=== PATIENT | female | born 1995 | race Two or more races ===

== ENCOUNTER 2021-04-17 13:35 | Emergency (ER) | payer OTHER ==
[~2021-04-17] VITALS: Ht 154.9 cm; Wt 102.5 kg
[2021-04-17 14:26] VITALS: BP 123/76
[2021-04-17] MEDS ORDERED: KETOROLAC TROMETH 60MG/2ML VIAL IM ONE (15:15)
== END 2021-04-17 15:52 | disposition home or self-care (01) ==
LOC: ER 13:35
DX: M54.41 Lumbago with sciatica, right side (principal); E66.01 Morbid (severe) obesity due to excess calories; Z68.41 Body mass index [BMI] 40.0-44.9, adult
CPT/HCPCS: 81002; 81025; 96372; 99283; J1885

== ENCOUNTER 2024-09-25 08:59 | Emergency (ER) | payer OTHER ==
[~2024-09-25] VITALS: Ht 154.9 cm; Wt 102.3 kg
--- NOTE | 2024-09-25 09:27 | ED.PDOC ---
GI ASSESSMENT HPI Comments 29-year-old with no pertinent MHx presents with a chief complaint of acute vertigo Onset started when she was at work Reports sudden symptoms of dizziness with sudden movements Denies any pain Denies numbness tingling weakness to the lower extremity Denies any medications Last [id number]/3/2024 Chief Complaint: Nausea/Vomiting Time Seen by MD: 09:16 Reviewed Notes: Nurses Notes, Medications, Allergies Allergies: Coded Allergies: No Known Drug Allergy (Verified Allergy, Unknown, 04/17/21) Home Meds Active Scripts Meclizine Hcl (Meclizine Hcl) 12.5 Mg Tab, 1 TAB PO TID for 30 Days, #90 TAB 0 Refills Prov:ELIUD AGUIAR [place] STEIN 09/25/24 Information Source: Patient Past Medical History PAST MEDICAL HISTORY: Denies Surgical History: Denies all surgeries CITY DIRECTOR History: Denies all CITY DIRECTOR Hx Family History Family History: Reviewed,noncontributory to illness Social History Smoker: Non-Smoker Lives In: Home All Other Systems: Reviewed and Negative (Per HPI) Physical Exam General Appearance: No Apparent Distress, Normal HEENT: Normal ENT Inspection, Pharynx Normal, TMs Normal Neck: Full Range of Motion, Non-Tender, Normal, Normal Inspection Respiratory: Chest Non-Tender, Lungs Clear, No Accessory Muscle Use, No Respiratory Distress, Normal Breath Sounds Cardiovascular: No Edema, No JVD, No Murmur, No Gallop, Normal Peripheral Pulses, Regular Rate/Rhythm Breast Exam: Deferred Gastrointestinal: No Organomegaly, Non Tender, No Pulsatile Mass, Normal Bowel Sounds, Soft Genitalia: Deferred Pelvic: Deferred Rectal: Deferred Extremities: No calf tenderness, Normal capillary refill, Normal inspection, Normal range of motion, Non-tender, No pedal edema Musculoskeletal : Apperance: Normal Neurologic: Alert, operations scheduler II-XII nml as Tested, No Motor Deficits, Normal Affect, Normal Mood, No Sensory Deficits Cerebellar Function: Normal Reflexes: Normal Skin: Dry, Normal Color, Warm Lymphatic: No Adenopathy Was a procedure done? Was a procedure done?: No GI differential Dx Differential Diagnosis: Other X-Ray, Labs, Meds, VS Vital Signs Date Time Temp Pulse Resp B/P (MAP) Pulse Ox O2 Delivery O2 Flow Rate FiO2 09/25/24 09:31 65 16 98 Room Air 09/25/24 09:31 98.2 65 16 147/64 (91) 98 98.2 09/25/24 09:22 98.2 65 16 147/64 (91) 98 Lab Test 09/25/24 09:47 09/25/24 09:20 Range/Units White Blood Count 7.6 4.4-10.8 10^3/uL Red Blood Count 4.53 4.0-5.20 10^6/uL Hemoglobin 13.2 12.2-16.2 g/dL Hematocrit 42.0 36.0-46.0 % Mean Corpuscular Volume 92.6 80.0-100.0 fL Mean Corpuscular Hemoglobin 29.1 28.0-32.0 pg Mean Corpuscular Hemoglobin Concent 31.4 L 32.0-36.0 g/dL Red Cell Distribution Width 13.4 11.8-14.3 % Platelet Count 220 140-450 10^3/uL Mean Platelet Volume 7.4 6.9-10.8 fL Neutrophils (%) (Auto) 66.1 37.0-80.0 % Lymphocytes (%) (Auto) 28.1 10.0-50.0 % Monocytes (%) (Auto) 4.0 0.0-12.0 % Eosinophils (%) (Auto) 1.2 0.0-7.0 % Basophils (%) (Auto) 0.6 0.0-2.0 % Neutrophils # (Auto) 5.0 1.6-8.6 10 ^3/uL Lymphocytes # (Auto) 2.1 0.4-5.4 10 ^3/uL Monocytes # (Auto) 0.3 0-1.3 10 ^3/uL Eosinophils # (Auto) 0.1 0-0.8 10 ^3/uL Basophils # (Auto) 0 0-0.2 10 ^3/uL Nucleated Red Blood Cells 0.0 % Sodium Level 136 136-145 mmol/L Potassium Level 4.8 3.5-5.1 mmol/L Chloride Level 107 98-107 mmol/L Carbon Dioxide Level 24 20-31 mmol/L Anion Gap 5 5-15 Blood Urea Nitrogen 6 L 9-23 mg/dL Creatinine 0.53 L 0.550-1.02 mg/dL Glomerular Filtration Rate Calc 130 >90 mL/min BUN/Creatinine Ratio 11.3 10.0-20.0 Serum Glucose 86 74-106 mg/dL Calcium Level 9.9 8.7-10.4 mg/dL Urine Color Light-yellow Yellow Urine Clarity Clear Clear Urine pH 6.5 5.0-9.0 Urine Specific [place] 1.008 1.001-1.035 Urine Protein Negative Negative Urine Ketones Negative Negative Urine Blood Negative Negative /uL Urine Nitrite Negative Negative Urine Bilirubin Negative Negative Urine Urobilinogen Normal Negative mg/dL Urine Leukocyte Esterase Negative Negative /uL Urine RBC <1 0 - 4 /hpf Urine WBC <1 0 - 5 /hpf Urine Squamous Epithelial Cells Few <5 /hpf Urine Bacteria None seen None Seen /hpf Urine Glucose Normal Normal mg/dL Urine Test Negative Negative Current Medications Medications (Trade) Dose Ordered Sig/Kelsy Route Start Time Stop Time Status Last Admin Meclizine HCl (Antivert Tablet) 25 mg ONCE ONCE PO 09/25/24 09:30 09/25/24 09:36 DC 09/25/24 09:39 X-Ray, Labs, Meds, VS Comment History and physical consistent with vertigo and peripheral etiology- specifically BPPV Neuro examination normal. Vital signs stable Meclizine as needed Patient instructed in performance of Chantal maneuver Recommended this video: https://edhub.ama-assn.org/jn-learning/video-player/06428040 Discussed that it is important to tailor exercises to the affected canal. The above video is for right-sided BPPV Recommending patient to sleep in a reclining position for the next night or so and to be aware of head positioning for the next week Return precautions given Symptoms not improving Any symptoms of facial drooping or limb weakness or any sign of stroke On reevaluation, patient had symptomatic improvement. Patient is stable for discharge at this time. External notes reviewed. Test results and diagnostic imaging interpreted. All diagnostic findings, discharge care, education and instructions provided Follow-up with PCP in 2 to 3 days Patient verbalized understanding and agreed to treatment plan Vital signs stable, afebrile, no acute distress noted Patient ambulatory with strong steady gait Advised to return precautions for any new or worsening symptoms, return to ER immediately for re-evaluation Patient is aware that the purpose of this visit was for an acute medical emergency requiring emergent stabilization. Chronic conditions, including malignancies have not been ruled out. Patient is instructed to follow up with PCP as directed and discharge instructions for continued care and workup. If unable to arrange follow-up, patient is to return to the emergency department f or reassessment. Patient (parent or legal guardian if applicable) was given verbal and written discharge instructions and acknowledges understanding. Time of 1ST Reevaluation: 10:30 Reevaluation 1ST: Improved Patient Education/Counseling: Diagnosis, Treatment Family Education/Counseling: Diagnosis, Treatment Departure 1 Departure Time of Disposition: 10:48 Impression: Primary Impression: Vertigo Disposition: 01 HOME / SELF CARE / HOMELESS Condition: Stable e-Prescriptions Meclizine Hcl (Meclizine Hcl) 12.5 Mg Tab 1 TAB PO TID for 30 Days, #90 TAB 0 Refills Prov: ELIUD AGUIAR NP 09/25/24 Discharged With: Self Critical Care Note Critical Care Time?: No Stability Stability form required: No Heart Score Heart Score: Heart Score Response (Comments) Value History N/A 0 EKG N/A 0 Age N/A 0 Risk Factors N/A 0 Troponin N/A 0 Total 0 ELIUD AGUIAR NP Sep 25, 2024 09:27
[2024-09-25 09:31] VITALS: BP 147/64; PULSE 65; RESP 16; TEMP 98.2; O2SAT 98
[2024-09-25 09:36] LABS: Urine Bacteria None Seen /hpf (None Seen)
[2024-09-25] MEDS: MECLIZINE HCL 25 MG TAB PO ONE (09:39)
[2024-09-25 10:06] LABS: Urine Blood Negative /uL (Negative); Urine Clarity Clear (Clear); Urine Protein, UAD Negative (Negative); Urine Specific Gravity 1.008 (1.001-1.035); Urine Urobilinogen Normal (Negative); Urine WBC <1 /hpf (0 - 5); Urine pH 6.5 (5.0-9.0)
[2024-09-25 10:08] LABS: Urine Color Light-Yellow (Yellow)
[2024-09-25 10:16] LABS: Chloride 107 mmol/L (98-107); Sodium 136 mmol/L (136-145)
[2024-09-25 10:17] LABS: Anion Gap 5 (5-15); Calcium 9.9 mg/dL (8.7-10.4); Carbon Dioxide 24 mmol/L (20-31)
[2024-09-25 10:22] LABS: Glucose 86 mg/dL (74-106)
[2024-09-25 10:29] LABS: BUN/Creatinine Ratio 11.3 (10.0-20.0); Blood Urea Nitrogen 6 mg/dL (9-23); Potassium 4.8 mmol/L (3.5-5.1)
[2024-09-25 10:30] LABS: Basophils # (auto) 0 10 ^3/uL (0-0.2); Basophils % (auto) 0.6 % (0.0-2.0); Eosinophils # (auto) 0.1 10 ^3/uL (0-0.8); Eosinophils % (auto) 1.2 % (0.0-7.0); Hemoglobin 13.2 g/dL (12.2-16.2); Lymphocytes # (auto) 2.1 10 ^3/uL (0.4-5.4); Lymphocytes % (auto) 28.1 % (10.0-50.0); Mean Corpuscular Hemoglobin 29.1 pg (28.0-32.0); Mean Corpuscular Hgb Conc. 31.4 g/dL (32.0-36.0); Mean Corpuscular Volume 92.6 fL (80.0-100.0); Monocytes # (auto) 0.3 10 ^3/uL (0-1.3); Neutrophils % (auto) 66.1 % (37.0-80.0); Platelet Count (auto) 220 10^3/uL (140-450); Red Blood Cells 4.53 10^6/uL (4.0-5.20); Red Cell Distribution Width 13.4 % (11.8-14.3); White Blood Cell 7.6 10^3/uL (4.4-10.8)
[2024-09-25] MEDS ORDERED: MECL12.586 PO (10:48)
== END 2024-09-25 10:51 | disposition home or self-care (01) ==
LOC: ER 08:59
DX: R42 Dizziness and giddiness (principal); Z79.899 Other long term (current) drug therapy
CPT/HCPCS: 36415; 80048; 81001; 81025; 85025; 99283; J8597

== ENCOUNTER 2025-03-19 03:14 | Emergency (ER) | payer OTHER ==
[~2025-03-19] VITALS: Ht 152.4 cm; Wt 98.1 kg
[~2025-03-19 03:14] MED LIST: MECL12.586 PO
[2025-03-19 03:20] VITALS: BP 128/74; PULSE 78; RESP 18; TEMP 98.6; O2SAT 98
--- NOTE | 2025-03-19 03:53 | ED.PDOC ---
Back pain HPI HPI Comments PATIENT WAS AT WORK THROWING HEAVY BOXES ON WEDNESDAY, NOTED PAIN TO HER LOWER ABDOMEN, PELVIC AREA, RADIATING TO HER BUTTOCKS. STATES PAIN INCREASES WITH WALKING OR TRYING TO HAVE A BOWEL MOVEMENT. LAST TOOK 500MG PAIN RELIEVER AT 2300 WITHOUT RELIEF OF PAIN. DENIES SADDLE ANESTHESIA, NUMBNESS OR WEAKNESS Chief Complaint: Pelvic Pain Time Seen by MD: 03:36 Reviewed Notes: Nurses Notes, Medications, Allergies Allergies: Coded Allergies: No Known Drug Allergy (Verified Allergy, Unknown, 04/17/21) Home Meds Active Scripts Ibuprofen (Ibuprofen) 800 Mg Tab, 800 MG PO Q8HP PRN for 6 Days, #18 TAB Prov:AVIVABJ Tabares POND TENDER 03/19/25 Tizanidine Hydrochloride (Tizanidine Hcl) 4 Mg Tab, 4 MG PO BID PRN for 5 Days, #10 TAB Prov:BJ CHICAS POND TENDER 03/19/25 Meclizine Hcl (Meclizine Hcl) 12.5 Mg Tab, 1 TAB PO TID for 30 Days, #90 TAB 0 Refills Prov:ELIUD AGUIAR NP 09/25/24 Information Source: Patient Mode of Arrival: Ambulatory Past Medical History PAST MEDICAL HISTORY: Denies Surgical History: Denies all surgeries CENTRAL COMMUNICATIONS SPECIALIST History: Denies all CENTRAL COMMUNICATIONS SPECIALIST Hx Family History Family History: Reviewed,noncontributory to illness Social History Smoker: Non-Smoker Lives In: Home Constitutional: denies: chills, diaphoresis, fatigue, fever, malaise, sweats, weakness, others EENTM: denies: blurred vision, double vision, ear bleeding, ear discharge, ear drainage, ear pain, ear ringing, eye pain, eye redness, hearing loss, mouth pain, mouth swelling, nasal discharge, nose bleeding, nose congestion, nose pain, photophobia, tearing, throat pain, throat swelling, voice changes, others Respiratory: denies: cough, hemoptysis, orthopnea, SOB at rest, shortness of breath, SOB with excertion, stridor, wheezing, others Cardiovascular: denies: chest pain, dizzy spells, diaphoresis, Dyspnea on exertion, edema, irregular heart beat, left arm pain, lightheadedness, palpitations, PND, syncope, others Gastrointestinal: reports: abdominal pain; denies: abdomen distended, blood streaked bowels, constipated, diarrhea, dysphagia, difficulty swallowing, hematemesis, melena, nausea, poor appetite, poor fluid intake, rectal bleeding, rectal pain, vomiting, others Genitourinary: denies: abnormal vagina bleeding, burning, dyspareunia, dysuria, flank pain, frequency, hematuria, incontinence, pain, , vagina discharge, urgency, others Neurological: denies: dizziness, fainting, headache, left sided numbness, left sided weakness, numbness, paresthesia, pre-existing deficit, right sided num bness, right sided weakness, seizure, speech problems, tingling, tremors, weakness, others Musculoskeletal: denies: back pain, gout, joint pain, joint swelling, muscle pain, muscle stiffness, neck pain, others Integumetry: denies: bruises, change in color, change in hair/nails, dryness, laceration, lesions, lumps, rash, wounds, others Allergic/Immunocompromised: denies: Difficulty Healing, Frequent Infections, Hives, Itching, others Hematologic/Lymphatic: denies: anemia, blood clots, easy bleeding, easy bruising, swollen glands, others Endocrine: denies: excessive hunger, excessive sweating, excessive thirst, excessive urination, flushing, intolerance to cold, intolerance to heat, unexplained weight gain, unexplained weight loss, others Psychiatric: denies: anxiety, bipolar disorder, depression, hopeless, panic disorder, schizophrenia, sleepless, suicidal, others Physical Exam General Appearance: No Apparent Distress, Normal HEENT: Pharynx Normal Neck: Full Range of Motion, Non-Tender Respiratory: Lungs Clear, No Respiratory Distress, Normal Breath Sounds Cardiovascular: No Murmur, Normal Peripheral Pulses, Regular Rate/Rhythm Breast Exam: Deferred Gastrointestinal: No Organomegaly, No Pulsatile Mass, Normal Bowel Sounds, Soft, Tenderness (MODERATE TENDERNESS ON PALPATION LOWER MID ABDOMEN WITH GUARDING) Genitalia: Deferred Pelvic: Deferred Rectal: Deferred Extremities: Normal capillary refill, Normal inspection, Normal range of motion, Non-tender, No pedal edema Musculoskeletal : Apperance: Normal Neurologic: Alert, community outreach advocate II-XII nml as Tested, No Motor Deficits, Normal Affect, Normal Mood, No Sensory Deficits Cerebellar Function: Normal Reflexes: Normal Skin: Dry, Normal Color, Warm Lymphatic: No Adenopathy Was a procedure done? Was a procedure done?: No Back Pain Differential Dx Differential Diagnosis: Fracture, Musculoskeletal Pain, Strain X-Ray, Labs, Meds, VS Vital Signs Date Time Temp Pulse Resp B/P (MAP) Pulse Ox O2 Delivery O2 Flow Rate FiO2 03/19/25 03:20 98.6 78 18 128/74 (92) 98 98.6 03/19/25 03:20 Room Air 03/19/25 03:20 98.6 78 18 128/74 (92) 98 98.6 Current Medications Medications (Trade) Dose Ordered Sig/Kelsy Route Start Time Stop Time Status Last Admin Ketorolac Tromethamine (Toradol Injection) 60 mg ONCE ONCE IM 03/19/25 04:15 03/19/25 04:16 DC 03/19/25 04:10 X-Ray, Labs, Meds, VS Comment CT ABDOMEN/PELVIS IMPRESSION: 1. 3.4 cm right adnexal cystic lesion trace pelvic free fluid. Pelvic ul trasound may be obtained for further evaluation. INCIDENTAL FINDING ON CT NOTED ABOVE PATIENT GIVEN COPY OF CT RESULTS ADVISED TO CALL HER PCP AND FOLLOW UP FOR OUTPATIENT ULTRASOUND. IT IS LIKELY ABDOMINAL MUSCLE WALL STRAIN, PATIENT GIVEN TORADOL 60 MG IM REPORTS IMPROVEMENT IN PAIN REQUESTING DISCHARGE AT THIS TIME. SCRIPT MUSCLE RELAXER AND IBUPROFEN ADVISED TO TAKE MEDICATIONS PRESCRIBED SIDE EFFECTS DISCUSSED. ADVISED TO REST ALTERNATE BETWEEN ICE AND HEAT. ER RETURN PRECAUTIONS GIVEN PATIENT INDICATES UNDERSTANDING AGREES WITH DISCHARGE PLAN OF CARE. Time of 1ST Reevaluation: 03:52 Reevaluation 1ST: Unchanged Patient Education/Counseling: Diagnosis, Treatment, Prognosis, Need For Follow Up Family Education/Counseling: No Family Present Departure 1 Departure Time of Disposition: 05:14 Impression: Primary Impression: Strain of muscle, fascia and tendon of abdomen, initial encounter Disposition: HOME / SELF CARE / HOMELESS Condition: Stable Additional Instructions: DISCUSSED FOLLOW UP WITH YOUR PRIMARY CARE PROVIDER RECOMMEND PELVIC ULTRASOUND FOR INCIDENTAL FINDING OF RIGHT ADNEXAL CYSTIC LESION e-Prescriptions Ibuprofen (Ibuprofen) 800 Mg Tab 800 MG PO Q8HP PRN for 6 Days, #18 TAB Prov: BJ CHICAS 03/19/25 Tizanidine Hydrochloride (Tizanidine Hcl) 4 Mg Tab 4 MG PO BID PRN for 5 Days, #10 TAB Prov: BJ CHICASP 03/19/25 Discharged With: Self Critical Care Note Critical Care Time?: No Stability Stability form required: No RICHY CHICASK [facility] Mar 19, 2025 03:53
[2025-03-19] MEDS: KETOROLAC TROMETH 60MG/2ML VIAL IM ONE (04:10)
--- NOTE | 2025-03-19 04:57 | DVH ---
Exam: CT CT AB PEL WO CON-NO ORAL OR IV History: LOWER MID PELVIC PAIN/INJURY Comparison Study: None available at time of dictation. Technique: Multidetector spiral CT of the abdomen and pelvis was performed from lung bases to pubic s ymphysis. Imaging was performed without intravenous contrast. Coronal and sagittal multiplanar reform ats were obtained from the axial data set by the technologist. Radiation Dose : 1. Abdomen/Pelvis: CTDIvol 23.75 mGy, DLP 1354.36 mGy*cm. Findings: Evaluation of vasculature and solid organs is limited due to lack of intravenous contrast use. Lung Bases: Lung bases are clear. Visualized portions of the heart and pericardium are unremarkable. Liver: The liver is normal in size. No focal lesions. Gallbladder and Biliary Tree: The gallbladder is unremarkable. No intrahepatic or extrahepatic biliar y ductal dilatation. Spleen: Unremarkable Pancreas: The pancreas is grossly unremarkable. Adrenal Glands: Unremarkable Kidneys: Kidneys are unremarkable without calculi or hydronephrosis. GI tract: The stomach is grossly normal in appearance. No evidence of small bowel wall thickening or abnormal dilatation to suggest bowel obstruction. The colon is unremarkable. The appendix is normal i n caliber. Peritoneum/mesentery/retroperitoneum. No evidence of free intraperitoneal air. Small volume pelvic fr ee fluid. No evidence of suspicious lymphadenopathy. Abdominal Wall: Unremarkable. Vasculature: The visualized abdominal aorta is normal in size and caliber. Evaluation of abdominal a nd pelvic vessels is limited due to lack of intravenous contrast. Urinary Bladder: Grossly unremarkable for degree of distention. Pelvic Organs: The uterus is unremarkable. There is a right adnexal cystic lesion measuring 3.4 by 2 .9 cm. Musculoskeletal: No aggressive focal bony lesions, acute fractures or dislocation. IMPRESSION: 1. 3.4 cm right adnexal cystic lesion trace pelvic free fluid. Pelvic ultrasound may be obtained for further evaluation.
[2025-03-19] MEDS ORDERED: TIZA-142 PO (05:15)
[2025-03-19] MEDS ORDERED: IBUP-1456 PO (05:15)
== END 2025-03-19 05:24 | disposition home or self-care (01) ==
LOC: ER 03:14
DX: S39.011A Strain of muscle, fascia and tendon of abdomen, initial encounter (principal); X50.0XXA Overexertion from strenuous movement or load, initial encounter; Y93.89 Activity, other specified; Y92.89 Other specified places as the place of occurrence of the external cause; Y99.0 Civilian activity done for income or pay
CPT/HCPCS: 74176; 96372; 99285; J1885